=== PATIENT | female | born 1940 | race Caucasian/White ===

== ENCOUNTER → 2016-11-05 | Outpatient (CLI) | payer OTHER ==
--- NOTE | ~2016-11-05 | EKG ---
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: [place] LAWRENCE : 1940 Requested By: Joyce Mcguire Order Number: [id number] MD: Jonathon Meier Measurements Intervals Tate Rate: 86 P: 69 NM: 149 QRS: -24 QRSD: 94 T: 30 QT: 375 QTc: 449 Interpretive Statements Sinus rhythm Abnormal R-wave progression, late transition Inferior infarct, old No previous ECG available for comparison Electronically Signed On 11-08-2016 13:25:55 CDT by Jonathon Meier [email or web address] <ELECTRONICALLY SIGNED> By: Jonathon Meier MD, [facility] 11/08/16 1325 1254 1254 Jonathon Meier MD, FACC /EPI
== END ==
LOC: CV 12:30
DX: Z01.818 Encounter for other preprocedural examination (principal); I10 Essential (primary) hypertension